=== PATIENT | female | born 1950 | race Caucasian/White ===

== ENCOUNTER → 2018-11-04 09:49 | Outpatient (CLI) | payer MEDICARE, OTHER, SELFPAY ==
[2018-11-06 15:12] LABS: Fecal Immunochemical Test NOT DETECTED
== END ==
PROVIDERS: PCP Physician Assistant; Visit Provider Physician Assistant
DX: Z12.11 Encounter for screening for malignant neoplasm of colon (principal)
CPT/HCPCS: 82274

== ENCOUNTER → 2018-12-02 06:40 | Outpatient (CLI) | payer MEDICARE, OTHER, SELFPAY ==
--- NOTE | 2018-12-02 06:42 | DI.US.S_ITS ---
PROCEDURE: US THYROID INDICATIONS: ENLARGED THYROID WITH RIGHT MANDIBLE LUMP TECHNIQUE: Real-time scanning was performed of the thyroid gland, with image documentation. COMPARISON: None. FINDINGS: Right: Thyroid lobe measures 4.8 x 1.0 x 1.3 cm, and is homogeneous in echotexture. No abnormality seen in the region of palpable abnormality. Left: Thyroid lobe measures 3.8 x 1.0 x 0.9 cm, and is homogenous in echotexture. Isthmus: 3.0 mm thick. IMPRESSION: Normal thyroid. Dictated by: Chuck ZAMBRANO Interpreted: Sveta Madison MD on 12/02/2018 at 9:34 Approved by: Sveta Madison M.D. on 12/02/2018 at 16:45
== END ==
PROVIDERS: Family Provider Physician Assistant; PCP Physician Assistant; Visit Provider Physician Assistant
DX: E04.9 Nontoxic goiter, unspecified (principal); M27.9 Disease of jaws, unspecified
CPT/HCPCS: 76536

== ENCOUNTER → 2018-12-16 06:44 | Outpatient (CLI) | payer MEDICARE, OTHER, SELFPAY ==
[2018-12-16 08:54] LABS: Hematocrit 42.9 % (36-46); Hemoglobin 14.2 g/dL (12.0-16.0)
[2018-12-16 09:05] LABS: HEMOLYSIS < 15 (0-50); Iron 87 ug/dL (37-170)
[2018-12-16 09:11] LABS: Cholesterol 182 mg/dL (140-199); HDL Cholesterol 31 mg/dL (40-60); LDL Cholesterol Calculated 102 mg/dL (<100); Triglycerides 247 mg/dL (35-150)
[2018-12-16 09:15] LABS: Percent Iron Saturation 23 % (15-50); Total Iron Binding Capacity 381 ug/dL (265-497); Transferrin 317 mg/dL (206-381)
[2018-12-16 09:34] LABS: Cortisol AM (Before 10AM) 5.72 ug/dL (4.46-22.7)
[2018-12-16 09:38] LABS: Ferritin 18.8 ng/mL (11.1-264)
== END ==
PROVIDERS: PCP Physician Assistant; Visit Provider Physician Assistant
DX: R53.83 Other fatigue (principal); E04.9 Nontoxic goiter, unspecified; E78.5 Hyperlipidemia, unspecified; Z86.2 Personal history of diseases of the blood and blood-forming organs and certain disorders involving the immune mechanism; R06.09 Other forms of dyspnea
CPT/HCPCS: 36415; 80061; 82533; 82728; 83540; 83550; 85014; 85018

== ENCOUNTER → 2019-04-14 13:32 | Outpatient (CLI) | payer MEDICARE, OTHER, SELFPAY ==
--- NOTE | 2019-04-14 15:23 | PM.TREADMILL ---
Cardiac Stress Test Report Referral & Results Date Patient Seen: 04/14/19 Requesting provider: Caitlin Mayer Indication: Dyspnea upon exertion Rest ECG: Unremarkable Procedure Note: Today following both written and verbal informed consent the patient was exercised according to a standard Aniceto protocol patient went for a total of 3 minutes 9 seconds achieving a maximum heart rate of 137 maximum systolic blood pressure of 148. This is approximately 4.6 METS. Exercise was terminated at this point because of 2 to 3+ dyspnea. Patient was also given Cardiolite through a previously started Hep-Lock IV by the all terrain vehicle technician approximately 1 minute prior to the cessation of exercise. No ST-T segment changes identified Normal heart rate and blood pressure response Functional aerobic impairment rated 30% on the sedentary scale Impression: No evidence of ischemia based on ECG criteria Limited exercise capacity as above Please see perfusion imaging report as well Please note: Actual ECG tracings can be found in the PACS system.
--- NOTE | 2019-04-15 15:37 | DI.NM.S_ITS ---
DATE OF SERVICE: 04/14/2019 PROCEDURE: Exercise perfusion study. INDICATIONS: Exertional short of breath, fatigue, mixed hyperlipidemia. RADIOPHARMACEUTICAL: 24.3 mCi technetium-99m Myoview IV was injected at stress and 26.8 mCi technetium-99m Myoview IV was injected at rest. CARDIAC STRESS: Patient underwent exercise perfusion study under the supervision of an attending staff. Sh3e walked on Aniceto protocol for 3 minutes 09 seconds and achieved 89% of target heart rate and normal blood pressure response. Patient developed significant dyspnea and fatigue. Baseline EKG revealed sinus rhythm with RS-R complex in V1 to V2 and low voltage complexes in chest leads. There was artifact seen during stress. However, EKG in immediate recovery did not reveal any obvious inducible ischemic changes. There was no significant arrhythmias seen. RAW DATA: Breast shadow was seen. GATED STUDY: Resting LV ejection fraction 88% and stress LV ejection fraction 94% without any obvious wall motion abnormalities. Resting end-diastolic volume is 57 mL. No transient ischemic dilatation. TID ratio is 0.85. Lung/heart ratio is 0.39, which is within normal limits. MYOCARDIAL PERFUSION SCAN: Resting supine images revealed small-sized mildly decreased perfusion of distal anterior lateral wall which got resolved during prone images. Stress supine images also did not reveal any significant perfusion defects. CONCLUSION: This is a normal myocardial perfusion study without any obvious ischemia infarction. However, patient has poor exercise tolerance. She developed significant shortness of breath during exertion. There was normal blood pressure and heart rate response no obvious ischemic EKG changes or significant arrhythmias. Consider pulmonary workup to rule out pulmonary etiology of shortness of breath. As far as perfusion scan is concerned, this is a low-risk myocardial perfusion scan. 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
== END ==
PROVIDERS: Family Provider Physician Assistant; PCP Physician Assistant; Visit Provider Physician Assistant
DX: R06.02 Shortness of breath (principal); R06.09 Other forms of dyspnea; R53.83 Other fatigue; E78.2 Mixed hyperlipidemia
CPT/HCPCS: 78452; 93016; 93017; 93018; A9502

== ENCOUNTER → 2019-11-10 17:04 | Outpatient (CLI) | payer MEDICARE, OTHER, SELFPAY ==
--- NOTE | 2019-11-10 | DI.MRI.S_ITS ---
PROCEDURE: MR CERVICAL SPINE WO CON INDICATIONS: NECK PAIN TECHNIQUE: Noncontrast sagittal T1 spin echo and T2 fast spin echo, sagittal STIR, foraminal oblique sagittal T2 fast spin echo, and axial gradient echo or T2 fast spin echo through the cervical spine. COMPARISON: [facility], CR, XR CERVICAL SPINE 2 OR 3 VIEWS, 06/18/2018, 9:27. [facility], RF, CERVICAL SPINE INTERLAMINAR, 07/24/2018, 7:24. FINDINGS: Image quality: Excellent. Alignment and Curvature: There is normal bony alignment. Bone Marrow: Marrow demonstrates normal overall signal. Spinal Cord: Visualized spinal cord has normal size and signal. No cerebellar tonsillar herniation. Paraspinous Soft Tissues: No paravertebral masses. Prevertebral soft tissues are normal in thickness. C2-C3: Preserved disc height. Mild disc desiccation and posterior disc bulge. Moderate bilateral facet arthropathy. The central canal is patent. Moderate bilateral foraminal stenosis. C3-C4: Preserved disc height. Mild disc desiccation and posterior disc bulge. Severe left and moderate right facet arthropathy. The central canal is patent. Severe left and moderate to severe right foraminal stenosis. C4-C5: Mild loss of disc height and disc desiccation. There is mild posterior disc bulge. Moderate bilateral facet arthropathy. The central canal is patent. Moderate foraminal stenosis bilaterally. C5-C6: Preserved disc height. Mild disc desiccation. There is diffuse posterior disc bulge and large posterior disc osteophyte complex. Moderate bilateral facet arthropathy. The central canal is moderately narrowed. Moderate -to-severe bilateral foraminal stenosis. C6-C7: Preserved disc height. Mild disc desiccation. There is diffuse posterior disc bulge and large posterior disc osteophyte complex. Uncovertebral hypertrophy on the left. Severe left and moderate right facet arthropathy. The central canal is moderately narrowed. Severe left and moderate right foraminal stenosis. C7-T1: Normal appearance. IMPRESSION: 1. Multilevel degenerative disc disease and facet arthropathy as described. 2. Moderate central canal stenosis at C5-C6 and C6-C7. 3. Multilevel foraminal stenoses as described. Dictated by: Cynthia Pak M.D. on 11/11/2019 at 9:59 Approved by: Cynthia Pak M.D. on 11/11/2019 at 10:08
== END ==
PROVIDERS: Family Provider Physician Assistant; PCP Physician Assistant; Visit Provider Physical Medicine & Rehabilitation
DX: M50.31 Other cervical disc degeneration, high cervical region (principal); M48.02 Spinal stenosis, cervical region; M47.812 Spondylosis without myelopathy or radiculopathy, cervical region
CPT/HCPCS: 72141